=== PATIENT | female | born 1970 | race Caucasian/White ===

== ENCOUNTER 2021-04-07 14:20 | Outpatient (CLI) | payer BC, SELFPAY ==
[2021-04-07 14:58] LABS: Anion Gap 8.8 mmol/L (3-11); BUN 18 mg/dL (7-18); CO2 26.2 mmol/L (21.0-32.0); CREATININE 0.9 mg/dL (0.55-1.02); Calcium 9.1 mg/dL (8.5-10.1); Chloride 104 mmol/L (98-107); Glucose 85 mg/dL (74-106); Potassium 3.6 mmol/L (3.5-5.1); Sodium 139 mmol/L (136-145)
[2021-04-08 22:28] LABS: Calculated LDL 89 mg/dL (<100); Cholesterol 163 mg/dL (<200); HDL Cholesterol 63 mg/dL (40-60); Triglyceride 57 mg/dL (<150)
== END 2021-04-07 14:21 | disposition home or self-care (01) ==
LOC: LBO 14:26
PROVIDERS: Visit Provider Nurse Practitioner Family
DX: I10 Essential (primary) hypertension (principal)
CPT/HCPCS: 36415; 80048; 80061

== ENCOUNTER 2022-03-31 15:55 | Outpatient (REF) | payer BC, SELFPAY ==
[2022-04-01 11:02] LABS: COVID-19 RT-PCR UVMMC Result Positive (Negative)
== END 2022-03-31 15:56 | disposition home or self-care (01) ==
LOC: LBN 15:55
PROVIDERS: Visit Provider Physician Assistant Medical
DX: Z20.822 Contact with and (suspected) exposure to COVID-19 (principal); J02.9 Acute pharyngitis, unspecified
CPT/HCPCS: U0003

== ENCOUNTER 2022-11-17 15:26 | Outpatient (REF) | payer BC, SELFPAY ==
[2022-11-17 15:15] LABS: HCT 41.7 % (36.0-46.0); HGB 13.3 g/dL (11.2-15.7); MCH 28.1 pg (27.0-33.0); MCHC 31.9 % (32.0-36.0); MCV 88 fL (80-95); MPV 10.5 fL (8.0-11.0); Platelet Count 385 10^3/uL (130-400); RBC 4.74 10^6/uL (3.93-5.22); RDW 13.8 % (11.7-14.6); RDW-SD 44.7 fL; WBC 7.04 10^3/uL (4.4-10.8)
[2022-11-17 15:57] LABS: Hemoglobin A1C 5.6 % (<5.7)
[2022-11-17 16:03] LABS: ALT 25 U/L (14-59); AST 17 U/L (15-37); Albumin 4.4 g/dL (3.4-5.0); Alkaline Phosphatase 90 U/L (46-116); Anion Gap 11.2 mmol/L (3-11); BUN 18 mg/dL (7-18); Bilirubin, Total 0.4 mg/dL (0.2-1.0); CO2 28.8 mmol/L (21.0-32.0); CREATININE 0.7 mg/dL (0.55-1.02); Calcium 9.5 mg/dL (8.5-10.1); Calculated LDL 84 mg/dL (<100); Chloride 102 mmol/L (98-107); Cholesterol 165 mg/dL (<200); Ferritin 183 ng/mL (8-252); Glucose 72 mg/dL (74-106); HDL Cholesterol 71 mg/dL (40-60); Potassium 3.9 mmol/L (3.5-5.1); Sodium 142 mmol/L (136-145); TSH 3.35 uIU/mL (0.36-3.74); Total Protein 7.6 g/dL (6.4-8.2); Triglyceride 53 mg/dL (<150); Vitamin B12 522 pg/mL (193-986)
[2022-11-20 11:27] LABS: Insulin 9.2 uIU/mL (<29.0)
== END 2022-11-17 15:27 | disposition home or self-care (01) ==
LOC: NCHCN 15:26
PROVIDERS: Visit Provider Nurse Practitioner Family
DX: Z00.00 Encounter for general adult medical examination without abnormal findings (principal)
CPT/HCPCS: 80053; 80061; 82306; 85027; 82607; 82728; 83036; 83525; 84443

== ENCOUNTER 2023-06-29 19:31 | Outpatient (REF) | payer BC, SELFPAY ==
[2023-06-29 17:23] LABS: ALT 23 U/L (14-59); AST 26 U/L (15-37); Albumin 4.1 g/dL (3.4-5.0); Alkaline Phosphatase 85 U/L (46-116); Anion Gap 9.5 mmol/L (3-11); BUN 19 mg/dL (7-18); Bilirubin, Total 0.3 mg/dL (0.2-1.0); CO2 25.5 mmol/L (21.0-32.0); CREATININE 0.8 mg/dL (0.55-1.02); Calcium 9.3 mg/dL (8.5-10.1); Chloride 103 mmol/L (98-107); Estimated GFR 89.15 (mL/min/1.73m2); Glucose 75 mg/dL (74-106); Potassium 3.3 mmol/L (3.5-5.1); Sodium 138 mmol/L (136-145); TSH (W/Ref FT4) 2.64 uIU/mL (0.36-3.74); Total Protein 7.9 g/dL (6.4-8.2)
[2023-06-29 19:09] LABS: Hemoglobin A1C 5.5 % (<5.7)
== END 2023-06-29 19:32 | disposition home or self-care (01) ==
LOC: NCHCN 19:31
PROVIDERS: Visit Provider Nurse Practitioner Family
DX: I10 Essential (primary) hypertension (principal); Z51.81 Encounter for therapeutic drug level monitoring; Z68.42 Body mass index [BMI] 45.0-49.9, adult
CPT/HCPCS: 80053; 83036; 84443

== ENCOUNTER 2024-01-19 20:22 | Emergency (ER) | payer BC, SELFPAY ==
[2024-01-19 20:31] VITALS: BP 171/100; PULSE 65; RESP 18; TEMP 36.4; O2SAT 100
--- NOTE | 2024-01-19 20:45 | RT.EKG_ITS ---
APPROVED REPORT Exam: Resting ECG Reason for Exam: epigstric abd pain Patient Location: E HR:67 bpm ECG Measurements Heart Rate 67 AXIS WV 136 P 57 QRSd 105 QRS 29 QT 423 T 33 QTc 448 Conclusion Sinus rhythm...normal P axis, V-rate 60- 99 Low voltage, precordial leads...precordial leads <1.0mV sinus rhtyhm, normal axis, normal intervals, low voltage
--- NOTE | 2024-01-19 20:57 | W.ED.GENAD ---
Discharge Plan Discharge Details Chief Complaint: Abd Prob Primary Care Provider: Robina Montano ED Provider: Gunnar Chatman Home Meds and New Rx's Prescriptions: No Action Victoza 3-Anthony 0.6 mg/0.1 mL (18 mg/3 mL) pen injector See Rx Instructions .ROUTE .COMPLEX Rx Instructions: inject 0.6mg subcutaneously once daily x 7 days; then 1.2mg daily, not to exceed 1.8mg/day topiramate [Topamax] 50 mg tablet 50 mg PO DAILY lisinopril 10 mg tablet 10 mg PO DAILY HPI General Date/Time Provider Initiated Documentation: 01/19/24 20:35. HPI Narrative: 53-year-old female presents with epigastric abdominal discomfort and diarrhea denies chest pain or shortness of breath denies nausea or vomiting. History of appendectomy hysterectomy and cholecystectomy. Related Data Home Medications Medication Instructions Recorded Confirmed liraglutide 0.6 mg/0.1 mL (18 mg/3 See Rx Instructions subcut .COMPLEX 01/19/24 01/19/24 mL) subcutaneous pen injector (Victoza 3-Anthony) lisinopril 10 mg tablet 10 mg PO DAILY 01/19/24 01/19/24 topiramate 50 mg tablet (Topamax) 50 mg PO DAILY 01/19/24 01/19/24 Allergies Allergy/AdvReac Type Severity Reaction Status Date / Time No Known Allergies Allergy Verified 01/19/24 20:36 General Stated Complaint: Abd Prob ERICKA: 3 Review of Systems Narrative: Review of Systems Constitutional: negative Eyes: negative ENT: negative Cardiovascular: negative Respiratory: negative Gastrointestinal: Abdominal pain, diarrhea : negative Musculoskeletal: negative Skin: negative Neurologic: negative Psych: negative Exam Narrative Exam Narrative: Physical Examination General: alert, awake, cooperative, resting comfortably, no acute distress HEENT: normocephalic, atraumatic; PERRL, EOM intact, conjunctiva normal; no nasal discharge; moist mucous membranes, oral and pharyngeal mucosa normal, tolerating secretions Neck: supple, trachea midline; full ROM Chest: normal to inspection Respiratory: normal respiratory effort, speaking in full sentences, clear to auscultation, no wheezing, rales or rhonchi Cardiac: regular rate, regular rhythm, S1S2 intact, no murmurs rubs or gallops GI: abdomen soft, non-tender, non-distended; no palpable mass or hepatosplenomegaly Skin: no lesions, rashes or trauma appreciated Neuro: AAOx3, normal speech, moving all extremities Extremities: No peripheral edema Psych: Appropriate mood and affect Course Vital Signs Vital signs: Vital Signs Temperature 36.4 C 01/19/24 20:31 Pulse 65 01/19/24 20:31 Respiratory Rate 18 01/19/24 20:31 Blood Pressure 171/100 H 01/19/24 20:31 Pulse Oximetry 100 01/19/24 20:31 Temperature 36.4 C 01/19/24 20:31 Temperature Source Oral 01/19/24 20:31 Pulse 65 01/19/24 20:31 Respiratory Rate 18 01/19/24 20:31 Respiratory Effort Normal, Non-Labored 01/19/24 20:39 Blood Pressure 171/100 H 01/19/24 20:31 Blood Pressure Position Sitting 01/19/24 20:31 Pulse Oximetry 100 01/19/24 20:31 Oxygen Delivery Method Room Air 01/19/24 20:31 Oxygen Flow Rate 0 01/19/24 20:31 Pain Level 9 01/19/24 20:31 Medical Decision Making 53-year-old female presents with epigastric abdominal discomfort and diarrhea, no chest pain or shortness of breath no nausea no vomiting, afebrile nontoxic abdominal surgeries in the past, consider gastritis versus viral enteritis versus diverticulitis versus colitis versus lower suspicion for bowel obstruction, lower suspicion for ACS or aortic pathology. Screening labs trial of fluids and GI cocktail, screening CT abdomen pelvis. Urinalysis. 00: 05 resting comfortably no acute distress awaiting results of CT abdomen pelvis. Quality:[facility] Health Related Social Needs: No Data to Display FOR[facility]LY [facility] Social History Smoking/Tobacco Use Status: Never Smoking risk assessment performed?: Yes Alcohol Intake: never Drug use: Never Substance use type: does not use Do you feel safe at home: Yes Do you feel safe in your relationship?: Yes
[2024-01-19 21:13] LABS: Abs Immature Grans 0.03 10^3/uL (0.0-0.06); Absolute Basophil Count 0.02 10^3/uL (0.0-0.2); Absolute Lymphocyte Count 1.44 10^3/uL (1.2-3.4); Absolute Monocyte Count 0.83 10^3/uL (0.1-0.8); Absolute Neutrophil Count 5.24 10^3/uL (1.2-6.7); Basophils % 0.3; Eosinophils % 1.3; HCT 42.9 % (36.0-46.0); HGB 13.8 g/dL (11.2-15.7); Immature Grans % 0.4; Lymphocytes % 18.8; MCH 28.6 pg (27.0-33.0); MCHC 32.2 % (32.0-36.0); MCV 89 fL (80-95); MPV 10.9 fL (8.0-11.0); Monocytes % 10.8; Neutrophils % 68.4; Platelet Count 288 10^3/uL (130-400); RBC 4.83 10^6/uL (3.93-5.22); RDW 13.3 % (11.7-14.6); RDW-SD 43.6 fL; WBC 7.66 10^3/uL (4.4-10.8)
[2024-01-19 21:31] LABS: ALT 16 U/L (14-59); AST 9 U/L (15-37); Alkaline Phosphatase 90 U/L (46-116); Anion Gap 9.8 mmol/L (3-11); BUN 19 mg/dL (7-18); Bilirubin, Total 0.2 mg/dL (0.2-1.0); CO2 27.2 mmol/L (21.0-32.0); CREATININE 0.7 mg/dL (0.55-1.02); Calcium 8.8 mg/dL (8.5-10.1); Chloride 104 mmol/L (98-107); Estimated GFR 104.65 (mL/min/1.73m2); Glucose 87 mg/dL (74-106); Lipase 77 U/L (16-77); Potassium 3.6 mmol/L (3.5-5.1); Sodium 141 mmol/L (136-145); Total Protein 7.8 g/dL (6.4-8.2); Troponin I < 50 ng/L (< or =60)
--- NOTE | 2024-01-19 22:46 | NUR.NOTE ---
report given to NADIR Anderson and care relinquished, provider made aware of difficult IV initiation and need for invasive line and delay of medication administration
[2024-01-19 22:58] LABS: PTT Activated 18.8 sec (23.6-32.8); Prothrombin Time 9.7 sec (9.1-11.1)
[2024-01-19] MEDS: Famotidine 20 MG/2 ML VIAL IVP (22:58)
[2024-01-19] MEDS: Ondansetron 4 MG/2 ML VIAL IVP (22:58)
[2024-01-19] MEDS: MORPHine 4 MG/ML SYR 2 MG IVP (22:58)
[2024-01-19] MEDS: Normal Saline 1,000 ML 1000 ML IV (23:06)
[2024-01-19] MEDS: Normal Saline - Diluent 50 ML VIAL IJ (23:22)
[2024-01-20] LABS: Bilirubin Negative (Negative); Blood Trace-intact (Negative); Clarity Clear (Clear); Glucose Negative (Negative); Ketones Negative (Negative); Leukocyte Esterase Negative (Negative); Nitrite Negative (Negative); Urobilinogen 0.2 mg/dL (Up to 0.2); pH 6.5 (5-8)
[2024-01-20 00:04] LABS: RBC 0-2 HPF (0-2); WBC Negative HPF (0-5)
[2024-01-20 00:05] LABS: Bacteria Negative HPF (Negative); C & S Indicated? No; Casts Negative LPF (Negative); Crystals Negative HPF (Negative); Epithelial Cells Negative HPF (Negative); Mucus Negative (Negative)
--- NOTE | 2024-01-20 00:06 | ED.PROG_ITS ---
Date of service: 01/20/24 Time of Service: 00:07 Medical Decision Making This patient was signed out to me. Please see previous notes for H&P and initial eval. In brief, 53yo F presenting with abdominal pain and nausea. Laboratory workup reassuring, pending CT abd/pelvis. If CT reassuring likely discharge home. CT independently reviewed; agree with radiology read below consistent with enteritis. Repeat troponin negative. On reassessment non-toxic appearing with reassuring vital signs, benign abdomina l exam. Patient describes pain as intermittent, tight, like a contraction, in the epigastrium. No lower abdominal pain to suggest ovarian pathology. Overall consistent with gastroenteritis. Prescribed PO zofran and discharged home to PCP followup. Discharge instructions and return precautions were reviewed with patient who verbalized understanding. All questions were answered and she is in full agreement with the plan. Imaging Data Radiologic Study: Imaging: CT Scan Radiologist's impression: IMPRESSION: 1. Trace ascites in the pelvis. 2. There is subtle inflammation of the mesentery associated with not dilated fluid-filled loops of otherwise unremarkable non thickened small bowel in the lower abdomen, suspicious for mild enteritis Quality:SDOH Health Related Social Needs: No Data to Display Sign Out Sign Out Data: Sign Out Comment: abdominal pain; likely home pending CT abd pelvis Last updated by Gunnar Chatman MD at 01/20/24 00:06 Discharge Plan Disposition Patient Disposition: Home Condition: Good Discharge Details Clinical Impression: Enteritis Primary Care Provider: Robina Montano ED Provider: Debra Avalos Home Meds and New Rx's Prescriptions: New ondansetron 4 mg tablet,disintegrating 4 mg PO Q8H PRNQty: 20 0RF Continued Victoza 3-Anthony 0.6 mg/0.1 mL (18 mg/3 mL) pen injector See Rx Instructions .ROUTE .COMPLEX Rx Instructions: inject 0.6mg subcutaneously once daily x 7 days; then 1.2mg daily, not to exceed 1.8mg/day topiramate [Topamax] 50 mg tablet 50 mg PO DAILY lisinopril 10 mg tablet 10 mg PO DAILY Discharge Instructions Instructions: Gastroenteritis (ED) Additional Instructions: Tylenol & ibuprofen over the counter as needed for pain; follow the directions on the bottle. Ondanesetron for vomiting, up to every 8 hours as needed. Call your primary care doctor on Sunday to schedule an appointment within one week to follow up on your visit here. Please discuss your blood pressure at that visit as it is high here in the ED today. Return to the emergency department for new or worsening symptoms including new/different/worse pain, inability to keep down fluids, or if you have any other concerns. Stand Alone Forms: Work Release Referrals: Robina Montano [Primary Care Provider] -
--- NOTE | 2024-01-20 00:15 | DI.CT_ITS ---
Exam(s) CT ABDOMEN PELVIS WO EXAM: CT ABDOMEN PELVIS WO CLINICAL HISTORY: abd pain. TECHNIQUE: Imaging Protocol: Axial computed tomography images with coronal and sagittal reformatted images were created and reviewed CONTRAST MATERIAL: Intravenous: none Oral: None COMPARISON: No exams were available for comparison FINDINGS: VISUALIZED LUNG BASES: No nodules nor pleural effusions evident. ABDOMEN: There is no ascites. LIVER: There are no obvious focal hepatic lesions evident of this noninfused study. GALLBLADDER/BILIARY: Gallbladder surgically absent. CBD is not dilated. PANCREAS: No evidence of pancreatic mass nor dilatation of the pancreatic duct. SPLEEN: Spleen is not enlarged. No obvious intrasplenic lesions. ADRENALS: There are no significant adrenal masses. KIDNEYS:No cysts evident. No solid renal masses. No calculi nor hydronephrosis. . ABDOMINAL AORTA: Abdominal aorta is not enlarged. LYMPH NODES: There is no retroperitoneal nor paraaortic adenopathy. ABDOMINAL WALL: No evidence of significant anterior abdominal wall nor inguinal hernia. GI: There is no evidence of bowel obstruction, free air, nor abscess. PELVIS: LYMPH NODES: There is no intrapelvic nor inguinal adenopathy. GI: No evidence of appendicitis.No evidence of sigmoid diverticulitis. URINARY BLADDER: No calculi nor obvious masses evident REPRODUCTIVE: The uterus is surgically absent. Ovaries are not identified, possibly surgically absen t. There is trace amount of free fluid in the pelvis. OSSEOUS: No significant osseous lesions. IMPRESSION: 1. There has been previous cholecystectomy and hysterectomy. Biliary tree is not dilated. 2. Trace fluid in the pelvis noted. 3. No evidence of bowel obstruction nor free air nor abscess. RADIATION DOSE DELIVERED: 1,297.68mGy.cm Total DLP DATA REPOSITORY: All CT scans at this facility are submitted to the National Radiology Data Registry (NRDR) Dose Index Registry (DIR) with the [employer] ([employer]). RADIATION OPTIMIZATION: All CT scans at this facility use at least one of these dose optimization te chniques: automated exposure control; mA and/or kV adjustment per patient size (includes targeted exa ms where dose is matched to clinical indication); or iterative reconstruction.
--- NOTE | 2024-01-20 01:07 | DI.VRAD_ITS ---
PROCEDURE INFORMATION: Exam: CT Abdomen And Pelvis Without Contrast Exam date and time: 01/20/2024 12:14 AM Age: 53 years old Clinical indication: Abdominal pain; Generalized; Patient HX: Abd pain TECHNIQUE: Imaging protocol: Computed tomography of the abdomen and pelvis without contrast. Radiation optimization: All CT scans at this facility use at least one of these dose optimization techniques: automated exposure control; mA and/or kV adjustment per patient size (includes targeted exams where dose is matched to clinical indication); or iterative reconstruction. COMPARISON: CT ABDOMEN PELVIS WO 01/20/2024 12:14 AM FINDINGS: Liver: Normal. No mass. Gallbladder and bile ducts: Prior cholecystectomy. No biliary ductal dilatation. Pancreas: Unremarkable. Spleen: Normal. Adrenal glands: Normal. No mass. Kidneys and ureters: Normal. No hydronephrosis. Stomach and bowel: There is subtle inflammation of the mesentery associated with not dilated fluid-filled loops of otherwise unremarkable non thickened small bowel in the lower abdomen, suspicious for mild enteritis. Appendix: Normal appendix. Intraperitoneal space: Trace ascites in the pelvis. Vasculature: Unremarkable. Lymph nodes: Unremarkable. Urinary bladder: Unremarkable as visualized. Reproductive: Hysterectomy. Bones/joints: Unremarkable. No acute fracture. Soft tissues: Unremarkable. IMPRESSION: 1. Trace ascites in the pelvis. 2. There is subtle inflammation of the mesentery associated with not dilated fluid-filled loops of otherwise unremarkable non thickened small bowel in the lower abdomen, suspicious for mild enteritis. Dictated and Authenticated by: Rush Sotelo MD. Ordering:ELIZABETH Richardson MD
[2024-01-20 01:17] LABS: Troponin I < 50 ng/L (< or =60)
[2024-01-20 01:44] VITALS: BP 114/60; PULSE 60; RESP 16; TEMP 36.4; O2SAT 100
[2024-01-20] MEDS: Ondansetron O.D.T. 4 MG TABEF, 3 TABS/BTL PO (01:44)
== END 2024-01-20 01:56 | disposition home or self-care (01) ==
PROVIDERS: Emergency Medicine; Emergency Provider Student in an Organized Health Care Education/Training Program; PCP Nurse Practitioner Family
DX: K52.9 Noninfective gastroenteritis and colitis, unspecified (principal); Z90.49 Acquired absence of other specified parts of digestive tract; Z90.710 Acquired absence of both cervix and uterus
CPT/HCPCS: 00123; 36415; 80053; 83690; 93005; 96361; 96374; 96375; 99285; 74176; 81003; 81015; 84484; 85025; 85610; 85730; 93010; 99284; J2270; J2405

== ENCOUNTER 2024-07-04 15:49 | Outpatient (REF) | payer BC, SELFPAY ==
[2024-07-04 19:49] LABS: ALT 21 U/L (14-59); AST 22 U/L (15-37); Albumin 3.9 g/dL (3.4-5.0); Alkaline Phosphatase 81 U/L (46-116); BUN 18 mg/dL (7-18); Bilirubin, Total 0.34 mg/dL (0.2-1.0); CREATININE 0.8 mg/dL (0.55-1.02); Calcium 9.3 mg/dL (8.5-10.1); Chloride 111 mmol/L (98-107); FREE T4 1.08 ng/dL (0.76-1.46); Glucose 94 mg/dL (74-106); Potassium 3.5 mmol/L (3.5-5.1); Sodium 148 mmol/L (136-145); TSH 3.84 uIU/mL (0.36-3.74); Total Protein 7.5 g/dL (6.4-8.2)
[2024-07-04 19:56] LABS: Hemoglobin A1C 5.5 % (<5.7)
== END 2024-07-04 15:50 | disposition home or self-care (01) ==
LOC: NCHCN 15:49
PROVIDERS: Visit Provider Nurse Practitioner Family
DX: Z68.42 Body mass index [BMI] 45.0-49.9, adult (principal); E66.9 Obesity, unspecified; I10 Essential (primary) hypertension
CPT/HCPCS: 80053; 83036; 84439; 84443

== ENCOUNTER 2025-03-20 14:01 | Outpatient (REF) | payer BC, SELFPAY ==
[2025-03-20 15:48] LABS: Hemoglobin A1C 5.5 % (<5.7)
[2025-03-20 15:49] LABS: TSH (W/Ref FT4) 4.16 uIU/mL (0.36-3.74)
[2025-03-20 16:55] LABS: FREE T4 1.03 ng/dL (0.76-1.46)
== END 2025-03-20 14:02 | disposition home or self-care (01) ==
LOC: NCHCN 14:01
PROVIDERS: Visit Provider Student in an Organized Health Care Education/Training Program
DX: Z68.42 Body mass index [BMI] 45.0-49.9, adult (principal); Z13.29 Encounter for screening for other suspected endocrine disorder; E66.9 Obesity, unspecified
CPT/HCPCS: 83036; 84439; 84443